=== PATIENT | female | born 1995 | race Caucasian/White ===

== ENCOUNTER → 2018-01-06 15:25 | Outpatient (CLI) | payer MEDICAID, SELFPAY ==
[2018-01-06 15:50] LABS: Color, Urine Yellow (Yellow); Glucose, Dipstick Normal (Normal); Ketone-Dipstick 5 mg/dl (Negative); Leukocyte Esterase-Dipstick Negative /ul (Negative); Nitrite-Dipstick Negative (Negative); Occult Blood-Urine Negative /ul (Negative); Protein-Dipstick Negative (Negative); Urine Bilirubin Dipstick Negative (Negative); Urine Clarity Clear (Clear); Urine Urobilinogen Normal (Normal)
[2018-01-06 15:51] LABS: Absolute Lymphocyte Count 1.03 X10^3/ul (0.83-4.51); Absolute Neutrophil Count 5.5 X10^3/uL (2.0-7.7); Basophil# 0.02 X10^3/uL; Basophil% 0.3 % (0-1); Eosinophil# 0.09 X10^3/uL; Eosinophils% 1.3 % (0-5); Hemoglobin 12.9 g/dl (12.0-15.0); Lymphocyte # 1.03 X10^3/ul (4.0); Lymphocyte % 14.4 % (19-41); Mean Corp Hgb Conc 33.9 g/gl (32-36); Mean Corpuscular Hgb 28.4 pg (27.0-32.0); Mean Corpuscular Volume 83.5 fL (81-99); Mean Platelet Vol. 10.5 fl (6.2-12.0); Monocyte# 0.51 X10^3/uL; Monocyte% 7.1 % (0-10); Neutrophil # 5.48 X10^3/uL (2.7-7.7); Neutrophil % 76.8 % (47-70); Platelet Count 264 K/mm3 (150-450); RBC Distribution Width SD 42.2 fl (35.1-43.9); Red Blood Count 4.55 M/mm3 (4.2-5.4); White Blood Count 7.1 K/mm3 (4.4-11.0)
[2018-01-06 15:52] LABS: POSITIVE COUNT NO; POSITIVE DIFFERENTIAL NO; POSITIVE MORPHOLOGY NO
[2018-01-06 16:31] LABS: Thyroid Stim Hormone (TSH) 0.61 uIU/mL (0.358-3.74)
[2018-01-06 16:49] LABS: Amphetamine Urine VISTA NEGATIVE (<1000 ng/mL); Barbiturate Urine VISTA NEGATIVE (< 200 ng/mL); Benzodiazepine Urine VISTA NEGATIVE (< 200 ng/mL); Cocaine Urine VISTA NEGATIVE (< 300 ng/mL); Ecstacy Urine VISTA NEGATIVE (< 500 ng/mL); Methadone Urine VISTA NEGATIVE (< 300 ng/mL); PCP Urine VISTA NEGATIVE (< 25 ng/mL); THC Urine VISTA NEGATIVE (< 50 ng/mL); Vista UDS pH Range 7
[2018-01-06 17:11] LABS: HIV - WCH Non-Reactive (Nonreactive); Rubella IgG 159.2 IU/mL
[2018-01-08 15:00] LABS: HEPATITIS B SURFACE AG Negative (Negative); Hep C Antibodies 0.1 s/co ratio (0.0-0.9)
[2018-01-10 03:48] LABS: Prenatal RPR NONREACTIVE (NONREACTIVE)
== END ==
PROVIDERS: Visit Provider Obstetrics & Gynecology
DX: Z34.81 Encounter for supervision of other normal pregnancy, first trimester (principal)
CPT/HCPCS: 36415; 80307; 81002; 84443; 85025; 86703; 86762; 86803; 87340

== ENCOUNTER → 2018-05-05 16:30 | Outpatient (CLI) | payer MEDICAID, SELFPAY ==
--- NOTE | 2018-05-05 16:30 | DT_ITS ---
This patient was seen during an EMR downtime May 05, 2018 - May 12, 2018. This patient may have a combination of paper and electronic documentation or all paper documentation. All documentation is viewable within the e-chart portion of [facility] for each patient visit.
[2018-05-11 03:07] LABS: Hematocrit 33.1 % (37-47); Hemoglobin 10.4 g/dl (12.0-15.0); Mean Corp Hgb Conc 31.4 g/gl (32-36); Mean Corpuscular Hgb 26.9 pg (27.0-32.0); Mean Corpuscular Volume 85.5 fL (81-99); Mean Platelet Vol. 10.4 fl (6.2-12.0); Platelet Count 274 K/mm3 (150-450); RBC Distribution Width CV 13.1 % (11.6-14.6); Red Blood Count 3.87 M/mm3 (4.2-5.4); White Blood Count 8.2 K/mm3 (4.4-11.0)
[2018-05-11 03:08] LABS: Scan Indicated on CBC? Y/N NO
[2018-05-11 03:12] LABS: Glucose Challenge Gest 1H 50g 99 mg/dL (70-140)
== END ==
PROVIDERS: Visit Provider Obstetrics & Gynecology
DX: Z34.83 Encounter for supervision of other normal pregnancy, third trimester (principal)
CPT/HCPCS: 36415; 82950; 85027

== ENCOUNTER 2018-07-12 02:36 | Inpatient (IN) | payer MEDICAID, SELFPAY ==
[2018-07-12] VITALS (23 sets, daily range): BP systolic 96–122; BP diastolic 38–76; PULSE 72–101; RESP 16–18; TEMP 36.3–37.1; O2SAT 95–100; BMI 35.5
[2018-07-12 02:35] LABS: ROM Internal Control Test YES-OK TO RESULT pt. (Internal QC)
[2018-07-12 02:36] LABS: ROM Patient Test POSITIVE (Negative)
[2018-07-12] MEDS: Lactated Ringers 1,000 ML 999 ML IV (03:20)
[2018-07-12 03:37] LABS: Absolute Lymphocyte Count 1.94 X10^3/ul (0.83-4.51); Absolute Neutrophil Count 6.3 X10^3/uL (2.0-7.7); Basophil# 0.02 X10^3/uL; Basophil% 0.2 % (0-1); Eosinophil# 0.03 X10^3/uL; Eosinophils% 0.3 % (0-5); Hematocrit 32.3 % (37-47); Hemoglobin 9.9 g/dl (12.0-15.0); Lymphocyte # 1.94 X10^3/ul (4.0); Lymphocyte % 21.2 % (19-41); Mean Corp Hgb Conc 30.7 g/gl (32-36); Mean Corpuscular Hgb 22.9 pg (27.0-32.0); Mean Corpuscular Volume 74.8 fL (81-99); Mean Platelet Vol. 10.3 fl (6.2-12.0); Monocyte# 0.78 X10^3/uL; Monocyte% 8.5 % (0-10); Neutrophil # 6.34 X10^3/uL (2.7-7.7); Neutrophil % 69.4 % (47-70); Platelet Count 234 K/mm3 (150-450); RBC Distribution Width CV 14.6 % (11.6-14.6); RBC Distribution Width SD 40.1 fl (35.1-43.9); Red Blood Count 4.32 M/mm3 (4.2-5.4); White Blood Count 9.2 K/mm3 (4.4-11.0)
[2018-07-12 03:40] LABS: Differential Indicated SCAN CRITERIA MET; POSITIVE COUNT NO; POSITIVE DIFFERENTIAL NO; POSITIVE MORPHOLOGY YES
[2018-07-12 04:02] LABS: Differential Comment SCANNED
[2018-07-12] MEDS: Sodium Citrate/Citric Acid 30 ML UDC PO (04:08)
--- NOTE | 2018-07-12 04:25 | PCM.DCCSEC ---
Discharge Diet: No Restrictions Discharge Activity: May not drive while taking narcotic pain medications., May Shower, May Take a Tub Bath Return to work on:: 09/08/18 May resume sexual activity in: 4-6 weeks Lifting Restrictions: 20 pounds Additional Activity Instructions:: Nothing in the vagina for 4-6 weeks. You may return to work/school in 6 weeks. Change Dressing in (Days):: 4 Remove Dressing in (days):: 4 Cleanse incision/area with: Soap & Water, Keep Dressing Clean & Dry Additional Instructions: If you experience any of the following, contact your healthcare provider. Bleeding that soaks a pad every hour for 2 hours Fever 100.4 or higher Unrelieved incision or abdominal pain Swelling, redness, discharge or bleeding from your incision Problems urinating (including inability to urinate or burning while urinating). Visual changes Severe headache Flu-like symptoms Pain or redness in one of both of your breasts Pain, warmth, tenderness or swelling in your legs, especially the calf area Frequent nausea and vomiting Symptoms of depression or anxiety If you experience any of the following, call 911 or go to the nearest Emergency Room. Chest pain Problems breathing Seizure activity Partial or complete paralysis of a body part, slurred speech, weakness or drooping of the face, or a sudden inability to walk or hold your balance Allergies/Adverse Reactions: Allergies No Known Allergies Allergy (Verified 07/12/18 02:16) Medications to take at Discharge Docusate Sodium [Colace] 100 mg PO BID PRN PRN #30 cap 07/12/18 Naproxen [Naprosyn] 250 - 500 mg PO TID PRN PRN #30 tab 07/12/18 Oxycodone [Oxyir] 5 - 10 mg PO Q6H PRN PRN 7 Days #20 tablet 07/12/18 The following prescriptions were given: Oxycodone [Oxyir] 5 - 10 mg PO Q6H PRN PRN 7 Days #20 tablet PRN Reason: Mod-Severe Pain (-09/10) Docusate Sodium [Colace] 100 mg PO BID PRN PRN #30 cap PRN Reason: Constipation Naproxen [Naprosyn] 250 - 500 mg PO TID PRN PRN #30 tab PRN Reason: Mild-Mod Pain (-5/10) Follow-Up: Call to make an appointment with your doctor for an incision check in 1-2 weeks. You will also need a 6 week post- follow up appointment. Test results from this visit will be discussed in further detail at your follow-up appointment, if applicable. Please Follow Up With: Linda Malloy MD - [phone] When: Call to make an appointment for an incision check in 2 weeks. Primary Care Physician: Care Physician,No Primary [Primary Care Provider] -
[2018-07-12] MEDS: Cefazolin 2 GM in 0.9% Normal Saline 100 ML IV (04:26)
--- NOTE | 2018-07-12 04:29 | DCINST_ITS ---
Discharge Diet: No Restrictions Discharge Activity: May not drive while taking narcotic pain medications., May Shower, May Take a Tub Bath Return to work on:: 09/08/18 May resume sexual activity in: 4-6 weeks Lifting Restrictions: 20 pounds Additional Activity Instructions:: Nothing in the vagina for 4-6 weeks. You may return to work/school in 6 weeks. Change Dressing in (Days):: 4 Remove Dressing in (days):: 4 Cleanse incision/area with: Soap & Water, Keep Dressing Clean & Dry Additional Instructions: If you experience any of the following, contact your healthcare provider. * Bleeding that soaks a pad every hour for 2 hours * Fever 100.4 or higher * Unrelieved incision or abdominal pain * Swelling, redness, discharge or bleeding from your incision * Problems urinating (including inability to urinate or burning while urinating) . * Visual changes * Severe headache * Flu-like symptoms * Pain or redness in one of both of your breasts * Pain, warmth, tenderness or swelling in your legs, especially the calf area * Frequent nausea and vomiting * Symptoms of depression or anxiety If you experience any of the following, call 911 or go to the nearest Emergency Room. * Chest pain * Problems breathing * Seizure activity * Partial or complete paralysis of a body part, slurred speech, weakness or drooping of the face, or a sudden inability to walk or hold your balance Allergies/Adverse Reactions: Allergies No Known Allergies Allergy (Verified 07/12/18 02:16) Medications to take at Discharge Docusate Sodium [Colace] 100 mg PO BID PRN PRN #30 cap 07/12/18 Naproxen [Naprosyn] 250 - 500 mg PO TID PRN PRN #30 tab 07/12/18 Oxycodone [Oxyir] 5 - 10 mg PO Q6H PRN PRN 7 Days #20 tablet 07/12/18 The following prescriptions were given: Oxycodone [Oxyir] 5 - 10 mg PO Q6H PRN PRN 7 Days #20 tablet PRN Reason: Mod-Severe Pain () Docusate Sodium [Colace] 100 mg PO BID PRN PRN #30 cap PRN Reason: Constipation Naproxen [Naprosyn] 250 - 500 mg PO TID PRN PRN #30 tab PRN Reason: Mild-Mod Pain (-04/10) Follow-Up: Call to make an appointment with your doctor for an incision check in 1-2 weeks. You will also need a 6 week post- follow up appointment. Test results from this visit will be discussed in further detail at your follow- up appointment, if applicable. Please Follow Up With: Linda Malloy MD - [phone] When: Call to make an appointment for an incision check in 2 weeks. Primary Care Physician: Care Physician,No Primary [Primary Care Provider] -
[2018-07-12] MEDS: Oxytocin 30 units/NS 500 ml 30 UNITS/500 ML IV.SOLN 167 UNITS IV (04:30)
--- NOTE | 2018-07-12 05:01 | PCM.OP.BLANK ---
Operative Report Date of Procedure: 07/12/18 - 38 WK SROM, labor. prior C/S PROCEDURE: Repeat C section. Preoperative diagnosis: 38 wk EGA Prior C section, planned repeat C section SROM (unknown duration) Postop diagnosis: 38 wk EGA Prior C section, planned repeat C section SROM (unknown duration) Anesthesia: Spinal, Ana Schwartz MD Surgeon: Linda Malloy MD Install Technician: OMEGA Espinosa EBL 600 cc Complications: none Drains: Milligan draining clear yellow urine Fluids: replacement LR Findings: Presented at 38 wk with UCs and ROM test positive (unknown time of SROM) At amniotomy, clear fluid was noted. Ortiz viable female in vertex presentation. Apgars 8/9, Baby weight: pending. There was a normal appearing uterus, fallopian tubes and ovaries bilaterally. PATH: Routine cord gases were sent. Narrative account: After the risks, benefits and alternatives of the procedure were reviewed with the patient, informed consent was obtained. The patient was taken to the Operating room with an IV running, and placed in a seated position on the operating table for placement of the spinal. Once the spinal had been administered, she was briefly frog-legged for Milligan catheter placement and vaginal vault prep, and then repositioned to dorsal supine position with leftward displacement of the uterus, and prepped and draped in the usual sterile fashion. Once the spinal was deemed adequate, a Pfannenstiel skin incision was created using the knife (through the prior skin incision scar). The incision was carried down to the rectus fascia using the knife. The fascia was nicked in the midline. The fascial incision was extended bilaterally using curved Guevara scissors. The superior aspect of the fascial incision was grasped with Jovani clamps and tented up and the underlying rectus abdominal muscles were dissected free. In a similar manner, the inferior aspect of the facial incision was grasped with Jovani clamps tented up and the underlying rectus abdominal muscles were dissected free. The rectus abdominis muscles were in the midline and the peritoneum was identified and entered by blunt dissection high in the incision. The peritoneum was stretched laterally and a bladder blade was inserted. A bladder flap was created along the lower uterine segment with Metzenbaum scissors . The uterine incision was then created using Metzenbaum scissors. The operators fingertips were used to extend the uterine incision by blunt dissection in a caudad- cephalad orientation . Clear fluid was noted at amniotomy. The vertex was then delivered atraumatically through the incision. The OP and nares were bulb suctioned on the abdomen. The shoulders delivered easily. The cord was clamped x two and cut. And the infant was handed off to the nurse awaiting delivery after briefly showing her to her parents. The umbilical cord was doubly clamped for routine gases to be collected. The baby had a spontaneous, vigorous cry. The placenta was then delivered. The uterus was exteriorized and cleared of clots and debris . The uterine incision was repaired with 1 Vicryl in a running locked fashion. A second imbricating layer was then placed, using 1 Monocryl in running nonlocked fashion. Bovie cautery was used to treat any bleeding areas . An additional horizontal mattress stitch of 1 Vicryl was placed at the R uterine angle for hemostasis. Excellent hemostasis was noted. At this point the uterus , fallopian tubes and ovaries were returned to the abdominal cavity. The gutters were cleared of clots and debris and the incision at the uterus was inspected. Excellent hemostasis was noted. The peritoneal edges and rectus abdominis muscles were reapproximated in the midline with vertical mattress stitches and figure of eight stitches of 1 Vicryl . Excellent hemostasis was noted at the subfascial space The fascia was closed in a running nonlocked fashion with a Stratofix. The Subcutaneous fatty tissue was Bovie cauterized as needed for hemostasis. This layer was then reapproximated with a single layer of running 3-0 Vicryl to eliminate space. The skin edges were closed in a Subcuticular stitch of 4-0 Monocryl. The incision was cleansed and a Mepilex dressing was applied to the skin . The patient was then transferred to the recovery room bed in stable condition after tolerating the procedure well. Sponge, lap, needle and instrument counts correct times two. Medications given preop and intraoperatively included: Ancef 2 gm given international banker to the operating room. The patient also received Pitocin given IV after cord clamp, and Toradol 30 mg IV times one. For a complete listing of medications given preop and intraoperatively, please see the anesthesia record.
--- NOTE | 2018-07-12 06:37 | NURSING ---
pt unsure of official ROM date and time. Pt reports that she has felt increased moisture for weeks. Afebrile.
[2018-07-12] MEDS: Lactated Ringers 1,000 ML 100 ML IV ×2 (06:58→16:24)
[2018-07-12] MEDS: Nalbuphine 10 MG/ML Ampul 5 MG IV (09:21)
[2018-07-12] MEDS: Ketorolac 30 MG/ML Syringe IV ×3 (09:22→22:10)
[2018-07-13] VITALS (7 sets, daily range): BP systolic 109–135; BP diastolic 44–77; PULSE 64–92; RESP 16–20; TEMP 36.4–36.7; O2SAT 97–99
[2018-07-13] MEDS: Lactated Ringers 1,000 ML 100 ML IV (02:53)
[2018-07-13] MEDS: oxyCODONE 5 MG Tablet PO ×3 (05:16→21:47)
[2018-07-13 05:25] LABS: Hematocrit 25.7 % (37-47); Mean Corp Hgb Conc 31.1 g/gl (32-36); Mean Corpuscular Hgb 23.6 pg (27.0-32.0); Mean Corpuscular Volume 75.8 fL (81-99); Mean Platelet Vol. 10.5 fl (6.2-12.0); Platelet Count 210 K/mm3 (150-450); RBC Distribution Width CV 14.7 % (11.6-14.6); RBC Distribution Width SD 39.5 fl (35.1-43.9); Red Blood Count 3.39 M/mm3 (4.2-5.4); White Blood Count 8.9 K/mm3 (4.4-11.0)
[2018-07-13 05:27] LABS: Scan Indicated on CBC? Y/N NO
[2018-07-13] MEDS: Ketorolac 30 MG/ML Syringe IV (05:53)
--- NOTE | 2018-07-13 08:36 | PN.OBGYN_ITS ---
Subjective: POD#1 repeat C/S. SROM, labor 38 wks Doing well. Pain control adequate. Bottle feeding and has been waking baby up to feed. Ordering breakfast - Physical Exam General: Alert, Oriented x3, Cooperative, No apparent distress HEENT: Atraumatic Neck: Supple Abdomen: Soft - Fundus firm NT at umbilicus Skin: Incision - Mepilex CDI. Three spots of old blood marked and no extension , each approx 1 cm Neurological: Cranial nerves II-XII grossly intact Psych/Mental Status: Normal Affect Vital Signs Temp Pulse Resp BP Pulse Ox 97.8 F 64 16 116/72 98 07/13/18 04:50 07/13/18 04:50 07/13/18 04:50 07/13/18 04:50 07/13/18 04:50 Oxygen Delivery Method Room Air Weight: 93.894 kg Body Mass Index (BMI) 35.5 Intake and Output for Last 24 Hours 07/11/18 07/12/18 07/13/18 23:59 23:59 23:59 Intake Total 400 / 400 350 / 350 Output Total 300 / 300 400 / 400 Balance 100 / 100 -50 / -50 Laboratory Tests Past 24 Hrs 07/13/18 05:00 WBC 8.9 RBC 3.39 L Hgb 8.0 L Hct 25.7 L MCV 75.8 L MCH 23.6 L MCHC 31.1 L RDW 14.7 H RDW Differential 39.5 Plt Count 210 MPV 10.5 Medical Necessity - Tobacco Use Smoking Status: Never smoker Assessment/Plan POD#1 Repeat C/S. 38 wks. Labor, SROM STable postop. Inc diet and activity as tolerated. S/L IV for continued toradol PO meds to begin Iron deficiency anemia (didn't take iron RXd) and with superimposed acute blood loss iron BID for one month Continue care.
[2018-07-13] MEDS: 0.9% Saline Lock 10 ML Syringe IV ×2 (08:57→12:29)
[2018-07-13] MEDS: Acetaminophen 500 MG Tablet 1000 MG PO (10:45)
[2018-07-13] MEDS: Naproxen 250 MG Tablet PO (12:40)
[2018-07-13] MEDS: Ferrous Sulfate 325 MG Tablet PO (16:38)
[2018-07-13] MEDS: Senna/Docusate Sodium 1 Tablet PO (19:44)
[2018-07-14] MEDS: Naproxen 250 MG Tablet PO ×2 (01:49→11:17)
[2018-07-14 01:52] VITALS: BP 113/51; PULSE 79; RESP 16; TEMP 36.6; O2SAT 97
[2018-07-14] MEDS: oxyCODONE 5 MG Tablet PO (04:13)
[2018-07-14] MEDS: Acetaminophen 500 MG Tablet 1000 MG PO (07:49)
--- NOTE | 2018-07-14 07:52 | PCM.PN.OB ---
Subjective: POD#2 repeat C/S at 38 wk SROM in labor. Doing well. baby failed hearing test and to be repeated. Bottle feeding. Would like to go home today. No concerns otherwise voiced. Doing well. - Physical Exam General: Alert, Oriented x3, Cooperative, No apparent distress HEENT: Atraumatic Neck: Supple Abdomen: Soft - Fundus firm NT inferior to umbilicus Skin: Incision - Mepilex CDI with shadow drainage marked, no extension. Neurological: Cranial nerves II-XII grossly intact Psych/Mental Status: Normal Affect Vital Signs Temp Pulse Resp BP Pulse Ox 97.9 F 79 16 113/51 L 97 07/14/18 01:52 07/14/18 01:52 07/14/18 01:52 07/14/18 01:52 07/14/18 01:52 Oxygen Delivery Method Room Air Weight: 93.894 kg Body Mass Index (BMI) 35.5 Intake and Output for Last 24 Hours 07/12/07/13/07/14/18 23:59 23:59 23:59 Intake Total 400 / 400 1950 / 1950 Output Total 300 / 300 1550 / 1550 Balance 100 / 100 400 / 400 Medical Necessity - Tobacco Use Smoking Status: Never smoker Assessment/Plan POD#2 Repeat C/S. 38 wks. Labor, SROM Stable postop. Iron deficiency anemia (didn't take iron RXd) and with superimposed acute blood loss iron BID for one month Wants to go home today. Dischg home. RTO In 2 wk for postop incision check, prn sooner.
--- NOTE | 2018-07-14 08:06 | PCM.DC.SUM ---
Discharge Date and Diagnosis Date of Admission: 07/12/18 - 38 wk SROM prior C/S planned repeat Date of Discharge: 07/14/18 - s/p repeat C/S Hospital Course and Treatment Operations: - - Repeat C section Summary of Care Provided: The patient is a 22 year old female at 38 wk with prior C/S presents with SROM . Planned repeat C/S. Admitted for C/S delivery and delivered of a garcia viable female. Ap 8/9. Preoperative, iron deficiency anemia noted. Procedure uncomplicated. Postoperative hgb 8 g/dl dec from 9.9 g/dl at admission. Postoperative course uneventful. AVSS and benign exam. Pain control adequate. Tolerating diet, activity well. Bottle feeding. requests dischg home on POD#2 . RTO in 2 wk for postop checkup. Iron bid planned for first month. Discharge Diet: No Restrictions Discharge Activity: May not drive while taking narcotic pain medications., May Shower, May Take a Tub Bath Return to work on:: 09/08/18 May resume sexual activity in: 4-6 weeks Additional Activity Instructions:: Nothing in the vagina for 4-6 weeks. You may return to work/school in 6 weeks. Change Dressing in (Days):: 4 Remove Dressing in (days):: 4 Cleanse incision/area with: Soap & Water, Keep Dressing Clean & Dry Home Medications: Medications to take at Discharge Docusate Sodium [Colace] 100 mg PO BID PRN PRN #30 cap 07/12/18 Naproxen [Naprosyn] 250 - 500 mg PO TID PRN PRN #30 tab 07/12/18 Oxycodone [Oxyir] 5 - 10 mg PO Q6H PRN PRN 7 Days #20 tablet 07/12/18 Ferrous Sulfate 325 mg PO BIDCM #60 tab 07/13/18 Following Prescrptions Were Given to Patient: Oxycodone [Oxyir] 5 - 10 mg PO Q6H PRN PRN 7 Days #20 tablet PRN Reason: Mod-Severe Pain (4-1010) Docusate Sodium [Colace] 100 mg PO BID PRN PRN #30 cap PRN Reason: Constipation Naproxen [Naprosyn] 250 - 500 mg PO TID PRN PRN #30 tab PRN Reason: Mild-Mod Pain (1-510) Ferrous Sulfate 325 mg PO BIDCM #60 tab Primary Care Physician: Care Physician,No Primary [Primary Care Provider] - Please Follow Up With: Linda Malloy MD - [phone] When: Call to make an appointment for an incision check in 2 weeks. Medical Necessity - Tobacco Use Smoking Status: Never smoker Meaningful Use Info Meaningful Use Diagnoses (Choose all that apply): None applicable
[2018-07-14 08:30] VITALS: BP 99/65; PULSE 78; RESP 18; TEMP 36.4
[2018-07-14] MEDS: Ferrous Sulfate 325 MG Tablet PO (11:17)
[2018-07-14] MEDS: Senna/Docusate Sodium 1 Tablet PO (11:22)
[2018-07-14 13:30] VITALS: BP 122/62; PULSE 78; RESP 18; TEMP 36.2
== END 2018-07-14 14:00 | disposition home or self-care (01) | DRG 370 ==
LOC: WPOUT 02:40
PROVIDERS: Admitting Provider Obstetrics & Gynecology; Visit Provider Obstetrics & Gynecology
DX: O34.211 Maternal care for low transverse scar from previous cesarean delivery (principal); O99.02 Anemia complicating childbirth; Z37.0 Single live birth; D50.9 Iron deficiency anemia, unspecified; Z3A.38 38 weeks gestation of pregnancy
CPT/HCPCS: 59025; 59050; 84112; 85025; 85027; 86850; 86900; 99218; J7120; A4216; G0378; J2405

== ENCOUNTER → 2020-09-05 | Outpatient (CLI) | payer MEDICAID, SELFPAY ==
[2020-03-31 08:19] VITALS: BMI 35.5
[2020-09-07 07:07] LABS: Chlamydia By Nucleic Acid AMP Negative (Negative)
[2020-09-07 11:56] LABS: Gonococcus By Nucleic Acid AMP Negative (Negative)
== END | disposition home or self-care (01) ==
LOC: LABSPEC 11:25
PROVIDERS: Visit Provider Obstetrics & Gynecology
DX: Z11.3 Encounter for screening for infections with a predominantly sexual mode of transmission (principal)
CPT/HCPCS: 87086; 87491; 87591

== ENCOUNTER → 2023-04-18 | Outpatient (CLI) | payer MEDICAID, SELFPAY ==
[2023-04-18 16:32] LABS: hCG Titer Quant., Serum 108 mIU/mL (1-3)
== END | disposition home or self-care (01) ==
PROVIDERS: Visit Provider Nurse Practitioner Women's Health
DX: N91.2 Amenorrhea, unspecified (principal)
CPT/HCPCS: 36415; 84702

== ENCOUNTER → 2023-04-22 | Outpatient (CLI) | payer MEDICAID, SELFPAY ==
[2023-04-22 14:00] LABS: hCG Titer Quant., Serum 31 mIU/mL (1-3)
== END | disposition home or self-care (01) ==
LOC: WOBLAB 13:12
PROVIDERS: Visit Provider Nurse Practitioner Women's Health
DX: N91.1 Secondary amenorrhea (principal)
CPT/HCPCS: 36415; 84702

== ENCOUNTER 2024-09-10 05:08 | Inpatient (IN) | payer OTHER, SELFPAY ==
--- NOTE | 2024-09-09 13:42 | PCM.HP.BLA ---
History and Physical Date of Admission: 09/10/24 HPI: The patient is a 29 year old female presenting for pre-operative visit. She is scheduled for and tubal sterilization, for history of previous , sterilization request and cholestasis of on 09/10/24. Procedure discussed along with risks, benefits and complications. Other alternatives discussed for management. Consent form signed? Yes. PAST MEDICAL HISTORY PAST MEDICAL HISTORY Diagnosis Date ? Anemia ? NEGATIVE MEDICAL HISTORY PAST SURGICAL HISTORY PAST SURGICAL HISTORY Procedure Laterality Date ? DELIVERY ONLY 02/03/2016 , 07/12/2018 CURRENT MEDICATIONS Current Outpatient Medications Medication Sig Dispense Refill ? 21-IRON FU-FOLIC ACID ORAL Take by mouth. ? omeprazole (PRILOSEC) 20 mg capsule Take 20 mg by mouth once daily. ? diphenhydramine HCl (UNISOM, DIPHENHYDRAMINE, ORAL) Take by mouth. ? aspirin, enteric coated (ECOTRIN LOW STRENGTH) 81 mg EC tablet Take 2 tablets by mouth once daily. 60 tablet 4 No current facility-administered medications for this visit. ALLERGIES: Patient has no known allergies. PERSONAL HISTORY: SOCIAL HISTORY Social History Tobacco Use ? Smoking status: Never Passive exposure: Never ? Smokeless tobacco: Never Vaping Use ? Vaping status: Never Used Substance Use Topics ? Alcohol use: Not Currently Comment: socially ? Drug use: Never FAMILY HISTORY: FAMILY HISTORY FAMILY HISTORY Problem Relation Age of Onset ? Rheumatologic disease Mother ? other (Hepatitic B) Father ? No Known Problems Sister ? No Known Problems Brother ? No Known Problems Son REVIEW OF SYMPTOMS: GENERAL: denies fevers or chills ENDOCRINOLOGY: has not been on steroids Cardiology : denies palpitations or chest pain Respiratory: denies SOB or cough Hematology: denies history of prolonged bleeding or easy bruising or VTE Allergy: Denies history of personal or family history of allergy to anesthesia PHYSICAL EXAMINATION: VITALS: Blood pressure 116/82, pulse 91, resp. rate 16, weight 100.7 kg (222 lb), last menstrual period 12/24/2023, SpO2 100%. GENERAL: The patient is well nourished, well hydrated in no acute distress. , The patient is oriented to time, place, and person. NECK: Supple. No lynphadenopathy, normal thyroid, no thyromegaly. LUNGS: Clear to auscultation bilaterally. no wheezes, rhonchi or rales HEART: Regular rate and rhythm, Normal heart sounds, and No murmurs or gallops Abdomen: Soft nontender, nondistended, gravid appropriate for gestational age IMPRESSION: Estimated Date of Delivery: 09/29/24 4 para 2-0-1-2 with cholestasis of presents for repeat section and sterilization request PLAN: The risks/benefits/alternatives and personal involved for the planned delivery and tubal sterilization were reviewed with the patient. Her questions were answered to her satisfaction and she desires to proceed. Consent was signed. I reviewed with her postop instructions and expectations. I have reviewed and updated past medical and surgical history, medications and allergies Assessment & Plan Assessment/Plan (1) 37 weeks gestation of : (2) High-risk , elderly multigravida in third trimester: (3) Previous delivery affecting : (4) Sterilization: (5) Cholestasis during in third trimester: (6) Maternal obesity syndrome in third trimester: (7) BMI 38.0-38.9,adult:
[2024-09-10] VITALS (17 sets, daily range): BP systolic 93–125; BP diastolic 41–78; PULSE 76–105; RESP 12–20; TEMP 36.1–37.2; O2SAT 94–99; BMI 38.1
--- NOTE | 2024-09-10 | FALS_PTH ---
PATIENT: DARRYL TRUJILLO LOC: [facility] U#:[id number] AGE/SX: ROOM: [facility]008 RE09/10/[address]: Dr. 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 Left fallopian tube, salpingectomy: Complete cross section of fallopian tube with focal decidual change. AM: 09/11/2024 MICROSCOPIC DESCRIPTION Slides are reviewed. GROSS DESCRIPTION Received in fixative is one container labeled with the patient's name and designated bilateral fallopian tubes- suture in right. The specimen consists of bilateral fallopian tubes including fimbrial ends. Right fallopian tube measures 7.0cm in length and 0.4cm in diameter and left fallopian tube measures 6.5 cm in length and 1.0 cm in diameter. Sections reveal unremarkable cut surfaces. Special Client Bus Driver sections are submitted in two cassettes. 1- right fallopian tube, 2- left fallopian tube. / JUANY: 09/10/2024 TC:5 CPT: 64159 x2
[2024-09-10] MEDS: Acetaminophen 500 MG Tablet 1000 MG PO ×3 (05:58→17:44)
[2024-09-10 06:00] LABS: Absolute Lymphocyte Count 1.99 X10^3/uL (0.83-4.51); Absolute Neutrophil Count 5.3 X10^3/uL (2.0-7.7); Basophil# 0.03 X10^3/uL; Basophil% 0.4 % (0-1); Eosinophil# 0.06 X10^3/uL; Eosinophils% 0.7 % (0-5); Hematocrit 32.3 % (37-47); Hemoglobin 10.2 g/dL (12.0-15.0); Lymphocyte # 1.99 X10^3/ul (0.83-4.51); Lymphocyte % 24.8 % (19-41); Mean Corp Hgb Conc 31.6 g/dL (32-36); Mean Corpuscular Hgb 24.6 pg (27.0-32.0); Mean Corpuscular Volume 77.8 fL (81-99); Mean Platelet Vol. 11.5 fl (6.2-12.0); Monocyte# 0.61 X10^3/uL; Monocyte% 7.6 % (0-10); NRBC Flagged by Analyzer 0 % (0-5); Neutrophil # 5.26 X10^3/uL (2.7-7.7); Neutrophil % 65.5 % (47-70); Platelet Count 241 K/mm3 (150-450); RBC Distribution Width CV 14.2 % (11.6-14.6); RBC Distribution Width SD 39.9 fl (35.1-43.9); Red Blood Count 4.15 M/mm3 (4.2-5.4)
[2024-09-10] MEDS: Lactated Ringers 1,000 ML 999 ML IV (06:20)
[2024-09-10] MEDS: Sodium Citrate/Citric Acid 30 ML UDC PO (06:52)
[2024-09-10] MEDS: Cefazolin 2 GM in 0.9% Normal Saline (100mL Bag) 100 ML IV (07:16)
[2024-09-10 08:28] LABS: Syphilis Antibodies Non-reactive
--- NOTE | 2024-09-10 08:41 | OP.PCM_ITS ---
Assessment & Plan (1) Cholestasis during in third trimester: (2) Sterilization: (3) Previous delivery affecting : (4) High-risk , elderly multigravida in third trimester: (5) 37 weeks gestation of : (6) delivery delivered: (7) Single live : Maternal Data Information Final JAIME: 09/30/24 Gestational age: 37 1/7 Details Operative Information Date of Procedure: 09/10/24 Pre-Operative Diagnosis: repeat c/s, 37 weeks, cholestasis of , sterilization request Post-Operative Diagnosis: same Classification: Scheduled Procedure Type: low transverse (with bilateral salpingectomy) digital marketing associate #1: Amaury Hale digital marketing associate #2: Billie sEtes M4 Type of Anesthesia: Spinal Anesthesiologist: Charissa Yang Special Medications: duramorph Antibiotic Given: Ancef 2 grams IV x1 Drain: Milligan to straight drain Estimated Blood Loss: 600 Fluids Replaced: 1000 Procedure Start Time: 07:44 Procedure Stop Time: 08:22 Time of Delivery: 07:46 Findings Description of Procedure: The patient was taken to the operating room. She was prepped and draped in the dorsal supine position with a leftward tilt. A Pfannenstiel skin incision was made approximately 2 cm above the symphysis pubis and carried through to underlying layer fascia with the scalpel. The fascia was incised incised in the midline and extended laterally with the Guevara scissors. The fascia was dissected off the rectus muscles with blunt and sharp dissection. The rectus muscles were in the midline and the peritoneum was entered bluntly. The peritoneal incision was stretched and the bladder blade was placed. The uterine incision was made in a low transverse fashion with the scalpel and e xtended superiorly and inferiorly with blunt dissection. The amniotic membranes were ruptured bluntly and clear amniotic fluid returned. The infant's head was brought to the incision in the flexed position and delivered without difficulty. The remainder of the was delivered with gentle traction and fundal pressure in the standard fashion. The mouth and nares were bulb suctioned. The cord was clamped and cut as the was stimulated. Cord clamping was delayed. The was handed off to the waiting nursing staff. The placenta was delivered with fundal massage and gentle traction in the standard fashion. The uterus was exteriorized and cleared of all clots and debris. The cervix was dilated with a ring forcep. The uterine incision was closed with #1 Vicryl in a running locked fashion. A second layer of the same suture was used in an imbricating fashion to obtain hemostasis. The incision was examined and was found to be hemostatic. The uterus was placed back into the peritoneal cavity and hemostasis was again confirmed. The left fallopian tube was identified and followed out to the fimbriated end. It was grasped with Nunica clamps. The LigaSure device was used to clamp, seal and transect the antimesenteric portion of the tube to the cornual insertion of the tube. This was clamped, sealed and transected with the LigaSure device. Hemostasis of the pedicles was noted and same procedure was performed on the contralateral side. The tubes were handed off to be sent to pathology. The rectus muscles were examined and any bleeding was Bovie cauteriz ed. The parietal peritoneum and rectus muscles were closed en bloc with an 0 Vicryl running suture. The rectus fascia was examined and any bleeding was Bovie cauterized and the rectus fascia was closed with #1 PDS suture in a running standard fashion. The subcutaneous tissue was examining and any bleeding was Bovie cauterized. The subcutaneous tissue was reapproximated with 3-0 Vicryl suture. The skin was closed in a subcuticular fashion by the SPINNER OPEN END with me present in the labor and delivery suite. I performed the remainder of the procedure with assistance. The SPINNER OPEN END performed retraction, tissue manipulation, suturing of subcutaneous tissue and skin closure. All sponge, lap, and needle counts were correct. The patient was taken to her room for recovery in a stable condition. Presentation: Positive for Vertex Amniotic Membrane Rupture Type: Artificial Amniotic Fluid Description: Clear Placental Delivery Description: Expressed Placenta Disposition: [facility] Specimen(s) Sent to Pathology: bilateral fallopian tubes Cord Vessel Description: 3 Vessels Cord Entanglement: Around neck x 1, loose Nuchal Cord Compression: Without compression Infant A Gender: Male (Mario) (1 minute): 8 (5 minute): 9 Delayed Cord Clamping: Yes Complications Complications: none Admit VTE Documentation VTE Present on Admission: Yes VTE Mechan Device Prophylaxis: SCD's VTE Pharm Prophylaxis Ordered: Yes
[2024-09-10] MEDS: Oxytocin 15 Units/NS 250ml 15 UNITS/250 ML IV.SOLN 83 UNITS IV (08:45)
[2024-09-10] MEDS: Ketorolac 30 MG/ML Syringe IV ×3 (09:15→21:27)
[2024-09-10] MEDS: DiphenhydrAMINE 25 MG Capsule PO ×2 (10:01→17:44)
[2024-09-10 11:18] LABS: Pathology Specimen OB SEE PATHOLOGY REPORT
[2024-09-10] MEDS: Ondansetron 4 MG/2 ML Vial IV (12:02)
[2024-09-10] MEDS: Lactated Ringers 1,000 ML 100 ML IV (12:03)
[2024-09-10] MEDS: 0.9% Saline Lock 10 ML Syringe IV ×2 (20:22→21:28)
[2024-09-10] MEDS: Enoxaparin 40 MG/0.4 ML Syringe SC (21:29)
[2024-09-11] VITALS: BP 104/57; PULSE 73; RESP 16; TEMP 36.7; O2SAT 98
[2024-09-11] MEDS: Acetaminophen 500 MG Tablet 1000 MG PO ×4 (00:05→18:18)
[2024-09-11] MEDS: Ketorolac 30 MG/ML Syringe IV (03:32)
[2024-09-11] MEDS: 0.9% Saline Lock 10 ML Syringe IV ×4 (03:33→18:19)
[2024-09-11 04:00] VITALS: BP 111/54; PULSE 86; RESP 16; TEMP 36.8; O2SAT 98
[2024-09-11 06:42] LABS: Hematocrit 24.3 % (37-47); Hemoglobin 7.7 g/dL (12.0-15.0); Mean Corp Hgb Conc 31.7 g/dL (32-36); Mean Corpuscular Hgb 25.1 pg (27.0-32.0); Mean Corpuscular Volume 79.2 fL (81-99); Mean Platelet Vol. 10.9 fl (6.2-12.0); Platelet Count 186 K/mm3 (150-450); RBC Distribution Width CV 14.4 % (11.6-14.6); RBC Distribution Width SD 41.3 fl (35.1-43.9); Red Blood Count 3.07 M/mm3 (4.2-5.4); White Blood Count 9.9 K/mm3 (4.4-11.0)
--- NOTE | 2024-09-11 08:30 | PN.OBGYN_ITS ---
Subjective Subjective Doing well per patient and nursing staff. Ambulating and taking PO without difficulty. Voiding and passing flatus. Pain controlled. Bottle feeding. Denies headache, visual changes, chest pain, shortness of breath, leg pain or increased bleeding. Lochia normal. Objective Data Objective Data Vital Signs: Vital Signs Temp Pulse Resp BP Pulse Ox O2 Del Method 98.2 F 89 16 125/67 H 100 Room Air 09/12/24 09:22 09/12/24 09:22 09/12/24 09:22 09/12/24 09:22 09/12/24 09:22 09/12/24 09:22 Oxygen Delivery Method Room Air Weight: 222 lb 3.2 oz Body Mass Index (BMI) 38.1 Intake & Output: Intake and Output for Last 24 Hours 09/10/24 09/11/24 09/12/24 23:59 23:59 23:59 Intake Total 2788.33 / 2788.33 110 / 110 Output Total 1175 / 1175 350 / 350 Balance 1613.33 / 1613.33 -240 / -240 Lab / Micro Data 09/12/24 06:00 Labs: Laboratory Results - last 24 hr 09/12/24 06:00: WBC 7.5, RBC 3.39 L, Hgb 8.4 L, Hct 27.6 L, MCV 81.4, MCH 24.8 L , MCHC 30.4 L, RDW Std Deviation 42.8, RDW Coeff of Maye 14.6, Plt Count 228, MPV 10.8 Physical Exam Const alert and oriented x3 General Appearance: cooperative Orientation / Consciousness: awake, oriented to person, oriented to place and oriented to time Exam Limitations: no limitations HEENT normocephalic Head and Scalp: normal to inspection, normocephalic and atraumatic Face and Sinus: normal facial exam Eyes General Eye: normal appearance of both eyes Neck full ROM Chest Chest: symmetrical chest wall rise Resp normal respiratory effort and normal air movement Auscultation: clear to auscultation bilaterally Cardio regular rate, regular rhythm, S1 normal heart sound, S2 normal heart sound, no murmurs, no rub, no gallops and no clicks GI normal to inspection, nondistended, normoactive bowel sounds and non-tender GI Narrative: Dressing dry and intact appearance of the vagina normal Bladder / Kidney Exam: no CVA tenderness Back/Spine normal ROM Extremity normal to inspection and full ROM Skin no rashes or lesions noted Neuro oriented x3, CN's II-XII intact bilaterally and moves all extremities Sensorium / Orientation: awake, alert and oriented to person Motor Exam: clonus absent Deep Tendon Reflexes: Rt Patellar (L4): 2+ and Lt Patellar (L4): 2+ Assessment & Plan (1) delivery delivered: (2) Single live : (3) Acute blood loss anemia: PLAN: Plan 1) Routine POD#1 LTCS 2) Vitals stable 3) I&O 4) Pain management 5) services PRN 6) Hgb 10.2 to 7.7, IV iron infusion ordered, repeat CBC in am 7) Planning D/C home tomorrow
[2024-09-11 08:43] VITALS: BP 114/66; PULSE 71; RESP 16; TEMP 36.9; O2SAT 98
[2024-09-11] MEDS: Senna/Docusate Sodium 1 Tablet PO (09:08)
[2024-09-11] MEDS: Ibuprofen 600 MG Tablet PO ×3 (09:08→21:05)
[2024-09-11] MEDS: Iron Sucrose Complex 200 MG in 0.9% Normal Saline (100mL Bag) 100 ML 220 MG IV (10:16)
--- NOTE | 2024-09-11 11:01 | CASEMGMT ---
Social Work Assessment Labor and Delivery Unit Patient Address: [facility] [place] [address] [address] Phone number: [phone] Date of Referral: 09/10/24 Time of Referral:? [id number] Referred By: Dr. Kalani Hylton Date of Intervention: ??09/11/24 Time of Intervention:? 914 Reason for Referral:? pt parents history of addiction This SW and SW Rocky completed chart review and acknowledges social work consult due to pt parents' history of addiction. SWs presented to bedside and introduced selves to mother of baby (GAUTAM - Destiny) and her /father of baby, Jj. FOB stated he was leaving and did not stay for completion of assessment. SWs explained reason for SW involvement and completed psychosocial assessment. History obtained from: medical records and mother of baby (GAUTAM)??? Household composition: GAUTAM and FOGissel live together in their home with their other children, Yeyo (8) and Sarai (6). Patton baby, Mario Guerrero, to be added when ready for discharge. GAUTAM states that her housing is safe and secure. Patient's parent/guardian status:? ?GAUTAM reports that her and FOB are and they have been together for 11 years. Medical History: ?GAUTAM is a 29 year old female who is 4, para 2-now 3 following labor and delivery of . GAUTAM received routine care during with [facility]. GAUTAM presented to hospital for scheduled repeat at 37 weeks on 09/10/24. Patton baby boy, Mario Guerrero, was born weighing 7 lbs 8 oz with apgars of 8 and 9 at one and five minutes of life respectively. GAUTAM is bottle/formula feeding baby and baby will be followed by Dr. Quiroga for pediatrics. Educational Status:? MOB and FOB both have high school diplomas. 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 MOB and FOB both will have time off for maternity and paternity leaves, respectively. Supplies: GAUTAM reports having obtained all necessary baby supplies, including car seat, safe sleep space, clothes, diapers, and wipes. GAUTAM reports she also has all needed bottles and nipples to feed baby. Childcare/Caregiver(s):? GAUTAM reports her and FOB having opposite work schedules to where childcare will not be needed. Transportation:?? 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 Programs/Agencies Involved: ???GAUTAM denies being connected to any outside resources and denies any needs. Children Services/Legal Issues:??? MOB denies any current or past legal issues. Behavioral Health Issues: ??Mental Health History:?GAUTAM has no reported mental health struggles.? Substance Use History:?GAUTAM reports no current or past struggles with substance use with her or FOB.? Family History:?GAUTAM reports that her father struggled with alcohol and heroin, her mother struggled with various drugs, and her two siblings used substances as well. GAUTAM reports all of her family members being clean and sober now. GAUTAM also reports that she saw the mess her family members got into and she wanted to stay on the straight and narrow for her children.? Drug Screens: GAUTAM's drug screens during were negative for all substances. baby urine screens at time of delivery were also negative for all substances. Family/Social Stressors:? GAUTAM does not identify concerns or stressors at this time. Support Systems: GAUTAM identified her /FOB, and the maternal grandmother as her biggest supports. GAUTAM also identified that her sister is a support. Depression/Shaken Baby/Safe Sleeping: SWs educated GAUTAM on signs and symptoms of baby blues and mood and anxiety disorders to be mindful of during this period. GAUTAM states she never experienced these following her first two children, but is aware that things may be different following this final baby. GAUTAM reports that she would talk with her and OBGYN if she were to notice struggles with her mental health. SWs educated MOB on shaken baby prevention and ABCs of safe sleep. MOB expressed understanding. ASSESSMENT: MOB and baby admitted following labor and delivery. GAUTAM has parents with addiction history. This is GAUTAM's third child with the other two being 8 and 6 years old. GAUTAM has no legal involvement and no outside agency needs. GAUTAM has no mental health concerns for her or FOB. MOB acknowledges her family history with alcohol and substance use, but MOB reports they are all clean and sober and she reports no desire to use alcohol or substances. MOB talkative and open with SWs during completion of assessment. MOB was receptive to resources provided and discussed. ? PLAN:??No other services requested or indicated. MOB and baby to be discharged when medically ready. MOB was provided literature regarding: signs and symptoms of baby blues and mood and anxiety disorders, Help Me Grow, shaken baby prevention, ABCs of safe sleep and a list of county resources that are available for her and FOB should any needs present themselves. Talya Chandler, BRUSH WORKER, TURBO OPERATOR
[2024-09-11 14:45] VITALS: BP 120/60; PULSE 66; RESP 16; TEMP 36.8; O2SAT 100
[2024-09-11 20:50] VITALS: BP 130/74; PULSE 86; RESP 16; TEMP 36.7; O2SAT 97
[2024-09-11] MEDS: Enoxaparin 40 MG/0.4 ML Syringe SC (21:05)
[2024-09-12] MEDS: Acetaminophen 500 MG Tablet 1000 MG PO ×2 (00:04→05:52)
[2024-09-12 02:34] VITALS: BP 109/49; PULSE 77; RESP 16; TEMP 36.5; O2SAT 96
[2024-09-12] MEDS: Ibuprofen 600 MG Tablet PO ×2 (02:36→09:46)
[2024-09-12 06:12] LABS: Hematocrit 27.6 % (37-47); Hemoglobin 8.4 g/dL (12.0-15.0); Mean Corp Hgb Conc 30.4 g/dL (32-36); Mean Corpuscular Hgb 24.8 pg (27.0-32.0); Mean Corpuscular Volume 81.4 fL (81-99); Mean Platelet Vol. 10.8 fl (6.2-12.0); Platelet Count 228 K/mm3 (150-450); RBC Distribution Width CV 14.6 % (11.6-14.6); RBC Distribution Width SD 42.8 fl (35.1-43.9); Red Blood Count 3.39 M/mm3 (4.2-5.4); White Blood Count 7.5 K/mm3 (4.4-11.0)
[2024-09-12 09:22] VITALS: BP 125/67; PULSE 89; RESP 16; TEMP 36.8; O2SAT 100
--- NOTE | 2024-09-12 10:28 | DS.PCM_ITS ---
Providers Date of Admission: 09/10/24 Primary Care Physician: No Primary Care Phys Reason For Visit: SCHEDULED C SECTION/DELIVERED CSECTION Diagnosis Discharge Diagnosis (1) Cholestasis during in third trimester: Status: Acute Code(s): O26.643 - Intrahepatic cholestasis of , third trimester (2) Sterilization: Status: Acute Code(s): Z30.2 - Encounter for sterilization (3) Previous delivery affecting : Status: Acute Code(s): O34.219 - Maternal care for unspecified type scar from previous delivery (4) High-risk , elderly multigravida in third trimester: Status: Acute Code(s): O09.523 - Supervision of elderly multigravida, third trimester (5) 37 weeks gestation of : Status: Acute Code(s): Z3A.37 - 37 weeks gestation of (6) delivery delivered: Status: Acute Code(s): O82 - Encounter for delivery without indication (7) Single live : Status: Acute Code(s): Z37.0 - Single live Medications at Discharge Home Medications PNV#14-iron [id number]#8-[id number] 27 mg iron-1 mg-300 mg-50 mg capsule cap PO 09/10/24 acetaminophen 500 mg tablet 1,000 mg (2 x 500 mg) PO Q6 #0 tabs 09/12/24 ferrous sulfate 325 mg (65 mg iron) tablet 325 mg PO QODAY 30 days #15 tabs 09/12/24 ibuprofen 600 mg tablet 600 mg PO Q6H #0 tabs 09/12/24 sennosides 8.6 mg-docusate sodium 50 mg tablet (Stimulant Laxative Plus) 1 - 2 tab PO DAILY #0 tabs 09/12/24 Hospital Course Summary of Care Provided Minutes Spent on Discharge: 15 Hospital Course: Presented on 09/10/24 for repeat Low Transverse Section and bilateral salpingectomy. Postoperative course complicated by acute blood loss anemia, IV iron infusion given. Discharge home on postoperative day #2. Weight / BMI Weight Weight: 222 lb 3.2 oz Body Mass Index (BMI) 38.1 ABG / Lab / Microbiology Data 09/12/24 06:00 Laboratory: Laboratory Results - last 24 hr 09/12/24 06:00: WBC 7.5, RBC 3.39 L, Hgb 8.4 L, Hct 27.6 L, MCV 81.4, MCH 24.8 L , MCHC 30.4 L, RDW Std Deviation 42.8, RDW Coeff of Maye 14.6, Plt Count 228, MPV 10.8 D/C Instructions Discharge Diet: No restrictions May resume sexual activity in: 6 weeks Weight Bearing Status: Full weight bearing Lifting Restricted to (Lbs): 20 Call your doctor if your incision/area has: Continuous Slow Oozing, Sudden Increased Bleeding, Increased Pain/ Swelling, Increased Redness, Foul Smelling Discharge and Swelling at the incision site Call your doctor if you observe: Fever of 101 or Higher, Inability to urinate, Inability to have a bowel movement, Using more than 1 pad per hour, Shortness of breath, Dizziness, Fainting spells, Chest pain, Increased palpitations (irregular heartbeat), Calf discomfort and Uncontrolled pain Suture Line Care: Avoid Pulling/Pushing Remove Dressing in: 1 week Cleanse incision/area with: Keep Dressing Clean & Dry Meaningful Use Info Meaningful Use Meaningful Use Diagnoses (Choose all that apply): None applicable Ischemic Stroke Statin Dosing Therapy Reference: STATIN DOSE THERAPY REFERENCE: * Patients > 75 years receive moderate or high dose statin therapy. * Patients 75 years or YOUNGER should receive HIGH intensity statin dose unless contraindicated. You will be required to document reason for non-treatment if statin daily dose does not meet guidelines. HIGH DOSE STATIN THERAPY DAILY Atorvastatin > than or = to 40 mg Rosuvastatin > than or = to 20 mg Amlodipine + Atorvastatin > than or = to 2.5/40 mg Ezetimibe + Simvastatin 10/80 mg Simvastatin 80mg Discharge Plan Admission Admit Date/Time: 09/10/24 05:08 Primary Reason for Your Visit: Repeat Section and sterilization Attending Provider: Kalani Hylton Primary Care Provider: Care Physician,Jackie Primary Discharge Orders/Prescriptions Prescriptions: New acetaminophen 500 mg Tablet 1,000 mg PO Q6 Qty: 0 0RF sennosides-docusate sodium [Stimulant Laxative Plus] 8.6-50 mg Tablet 1 - 2 tab PO DAILY Qty: 0 0RF ibuprofen 600 mg Tablet 600 mg PO Q6H Qty: 0 0RF ferrous sulfate 325 MG tablet 325 mg PO QODAY 30 Days Qty: 15 0RF Discontinued omeprazole 20 mg capsule,delayed release(DR/EC) 20 mg PO DAILY No Action PNV #14-iron-FA#[id number] 27 mg iron-1 mg -300 mg-50 mg capsule PO Referrals / Follow Up: Kalani Hylton MD [Med Staff - Active Staff] - Care Physician,No Primary [Primary Care Provider] - Disposition Disposition (needs filled in before D/C Order can be placed): Home, Self Care
--- NOTE | 2024-09-12 10:28 | PN.OBGYN_ITS ---
Subjective Subjective Doing well per patient and nursing staff. Ambulating and taking PO without difficulty. Voiding and passing flatus. Pain controlled. Bottle feeding. Denies headache, visual changes, chest pain, shortness of breath, leg pain or increased bleeding. Lochia normal. Objective Data Objective Data Vital Signs: Vital Signs Temp Pulse Resp BP Pulse Ox O2 Del Method 98.2 F 89 16 125/67 H 100 Room Air 09/12/24 09:22 09/12/24 09:22 09/12/24 09:22 09/12/24 09:22 09/12/24 09:22 09/12/24 09:22 Oxygen Delivery Method Room Air Weight: 222 lb 3.2 oz Body Mass Index (BMI) 38.1 Intake & Output: Intake and Output for Last 24 Hours 09/10/24 09/11/24 09/12/24 23:59 23:59 23:59 Intake Total 2788.33 / 2788.33 110 / 110 Output Total 1175 / 1175 350 / 350 Balance 1613.33 / 1613.33 -240 / -240 Lab / Micro Data 09/12/24 06:00 Labs: Laboratory Results - last 24 hr 09/12/24 06:00: WBC 7.5, RBC 3.39 L, Hgb 8.4 L, Hct 27.6 L, MCV 81.4, MCH 24.8 L , MCHC 30.4 L, RDW Std Deviation 42.8, RDW Coeff of Maye 14.6, Plt Count 228, MPV 10.8 ROS Constitutional Constitutional: Reports systems reviewed and no addt'l complaints, except as documented; Denies headache(s) Eyes Eyes: Denies acute decrease in peripheral vision, blurry vision or change in vision ENT HEENT: Reports systems reviewed and no addt'l complaints, except as documented Cardiovascular Cardiovascular: Denies chest pain or dizziness Respiratory/Chest Respiratory/Chest: Denies cough, dyspnea, dyspnea on exertion, shortness of breath at rest or shortness of breath with exertion Gastrointestinal Gastrointestinal: Denies abdominal pain, diarrhea, nausea or vomiting Genitourinary Genitourinary: Denies abdominal discomfort Musculoskeletal Musculoskeletal: Denies limited range of motion Integumentary Integumentary: Reports systems reviewed and no addt'l complaints, except as documented Neurologic Neurologic: Reports systems reviewed and no addt'l complaints, except as documented Psychiatric Psychiatric: Reports systems reviewed and no addt'l complaints, except as documented Endocrine Endocrinology: Reports systems reviewed and no addt'l complaints, except as documented Hematologic/Lymphatic Hematologic/Lymphatic: Reports systems reviewed and no addt'l complaints, except as documented Allergic/Immunologic Allergic/Immunologic: Reports systems reviewed and no addt'l complaints, except as documented Physical Exam Const alert and oriented x3 General Appearance: cooperative Orientation / Consciousness: awake, oriented to person, oriented to place and oriented to time Exam Limitations: no limitations HEENT normocephalic Head and Scalp: normal to inspection, normocephalic and atraumatic Face and Sinus: normal facial exam Eyes General Eye: normal appearance of both eyes Neck full ROM Chest Chest: symmetrical chest wall rise Resp normal respiratory effort and normal air movement Auscultation: clear to auscultation bilaterally Cardio regular rate, regular rhythm, S1 normal heart sound, S2 normal heart sound, no murmurs, no rub, no gallops and no clicks GI normal to inspection, nondistended, normoactive bowel sounds and non-tender appearance of the vagina normal Narrative: dressing dry and intact Bladder / Kidney Exam: no CVA tenderness Back/Spine normal ROM Extremity normal to inspection and full ROM Skin no rashes or lesions noted Neuro oriented x3, CN's II-XII intact bilaterally and moves all extremities Sensorium / Orientation: awake, alert and oriented to person Motor Exam: clonus absent Deep Tendon Reflexes: Rt Patellar (L4): 2+ and Lt Patellar (L4): 2+ Assessment & Plan (1) Acute blood loss anemia: (2) Single live : (3) delivery delivered: (4) Sterilization: PLAN: Plan 1) Routine care, POD #2 2) Vitals signs stable 3) Pain controlled, declines pain medication. 4) Hgb 7.7 to 8.4 after IV iron infusion. Continue PO iron at home 5) D/C home 6) Follow up in 2 weeks and 6 weeks
== END 2024-09-12 11:50 | disposition home or self-care (01) | DRG 784 ==
PROVIDERS: Admitting Provider Obstetrics & Gynecology; Referring Provider Obstetrics & Gynecology; Visit Provider Obstetrics & Gynecology
PROC: 10D00Z1 Extraction of Products of Conception, Low, Open Approach (ICD-10-PCS; CPT 59514; principal; 2024-09-10 07:00)
DX: O26.643 Intrahepatic cholestasis of pregnancy, third trimester (principal); D62 Acute posthemorrhagic anemia; O99.214 Obesity complicating childbirth; Z37.0 Single live birth; Z30.2 Encounter for sterilization; O69.2XX0 Labor and delivery complicated by other cord entanglement, with compression, not applicable or unspecified; Z3A.37 37 weeks gestation of pregnancy; O34.211 Maternal care for low transverse scar from previous cesarean delivery; O99.02 Anemia complicating childbirth
CPT/HCPCS: 59025; 59050; 85025; 85027; 86780; 86850; 86900; 86901; 88302; 99221; J1756; J7120; A4216; G0378; J2405